=== PATIENT | female | born 1965 | race Caucasian/White ===

== ENCOUNTER 2018-06-18 17:49 | Emergency (ER) | payer OTHER, SELFPAY ==
[2018-06-18 17:52] VITALS: BP 176/74; PULSE 114; RESP 20; TEMP 37.3; O2SAT 97; BMI 51.2
--- NOTE | 2018-06-18 18:05 | RAD_ITS ---
STUDY: X-RAY - PELVIS REASON FOR EXAM: Female, 52 years old. Pain. TECHNIQUE: One view of the pelvis was obtained. COMPARISON: None. FINDINGS: There is a normal bowel gas pattern. There are multiple calcified phleboliths. Normal bilateral iliac wings, sacroiliac joints and visualized sacrum. Normal visualized bilateral superior and inferior pubic rami. There is narrowing with sclerosis of the pubic symphysis. Normal ischial tuberosities. Normal visualized right femoral head. Normal right acetabulum. Normal right hip joint. Normal visualized left femoral head. Normal left acetabulum. Normal left hip joint. There is no acute fracture. RAD/Pelvis 1 or 2 Views IMPRESSION: No fracture. Joint spaces of the hips are well-preserved.. Electronically Signed: Chaim Pro MD at 18:45 EDT , Service support ,
--- NOTE | 2018-06-18 18:23 | ED.VISSUMM ---
- ER Visit Summary Date of Service: 06/18/18 Chief Complaint: Left hip pain History of Present Illness: The patient is a 52 F who was at work today. She took her shoes off and was walking across the floor. She was still in socks in her left foot slipped in front of her and she went down into a forcible split. Since that time she has had pain and burning starting in the buttock radiating down the thigh. Nothing below the knee. She states her foot is functioning and feeling normally. Physical Examination: Afebrile vital signs stable Gen: Well-nourished well-developed Head: Normocephalic atraumatic Eyes: Perrl EOMI ENT: TMs clear no rhinorrhea moist mucous membranes Neck: Supple no lymphadenopathy no JVD nontender CVS: Regular rate rhythm no murmurs normal S1-S2 Respiratory: No distress clear to auscultation bilaterally chest nontender Abdomen: Soft nontender nondistended normal bowel sounds no masses Back: Nontender Extremity: Patient has pain in the left buttock along the sciatic notch extending inferiorly to the hamstring. Painful range of motion. Skin: Normal color no rash Neuro: alert orientated ?3 CN II-XII intact normal strength sensation reflexes Psych: Normal affect normal mood Test Results: X-rays of the pelvis did not demonstrate any pole of fracture. Emergency Department Course and Treatment: Patient initially did not wish anything for pain but later recanted asked for something orally and not narcotic. She was given naproxen. Ice was applied. I believe this to be a hamstring strain or tearing. There may also be a component of a sciatic nerve injury however it is functioning normally in both the motor and sensory functions. Recommend ice supportive care and rest. Impression: 1. Left hamstring strain This note was generated with [employer] dictation software. It may contain incorrect words, spelling, and punctuation that were not noted in review of the chart prior to signing ED Disposition - Plan for ED Patient: Disposition: Home or Assisted Living Instructions: ED Strain Muscle Ext Referrals: [facility] [GROUP OF PHYSICIANS] - As soon as possible
[2018-06-18] MEDS: Naproxen 500 MG Tablet PO (18:28)
== END 2018-06-18 19:07 | disposition home or self-care (01) ==
LOC: ED 19:02
PROVIDERS: Emergency Provider Emergency Medicine; Family Provider Family Medicine; PCP Family Medicine
DX: S76.012A Strain of muscle, fascia and tendon of left hip, initial encounter (principal); W01.0XXA Fall on same level from slipping, tripping and stumbling without subsequent striking against object, initial encounter; Y93.01 Activity, walking, marching and hiking; Y92.89 Other specified places as the place of occurrence of the external cause; Y99.0 Civilian activity done for income or pay; I10 Essential (primary) hypertension
CPT/HCPCS: 72170; 99284

== ENCOUNTER 2024-05-07 12:50 | Inpatient (IN) | payer OTHER, SELFPAY ==
[2024-05-07] VITALS (27 sets, daily range): BP systolic 99–174; BP diastolic 62–122; PULSE 68–168; RESP 12–25; TEMP 36.4–36.9; O2SAT 91–100; BMI 38.2; BMI 37.8
--- NOTE | 2024-05-07 12:57 | EKG12_ITS ---
Test Reason : RHYTHM CHANGE Blood Pressure : */* mmHG Vent. Rate : 80 BPM Atrial Rate : * BPM P-R Int : * ms QRS Dur : 80 ms QT Int : 350 ms P-R-T Axes : * -18 13 degrees QTcB Int : 403 ms Atrial fibrillation with premature ventricular or aberrantly conducted complexes Poor R wave progression Abnormal ECG Confirmed by Andreas Garg ([id number]), senior technical editor [place] OLIVA ([id number]) on 05/11/2024 9:33:34 AM Referred By: Confirmed By: Andreas Garg
--- NOTE | 2024-05-07 13:00 | EKG12_ITS ---
Test Reason : PALPATATIONS Blood Pressure : */* mmHG Vent. Rate : 151 BPM Atrial Rate : * BPM P-R Int : * ms QRS Dur : 78 ms QT Int : 276 ms P-R-T Axes : * -20 33 degrees QTcB Int : 437 ms Critical Test Result: High HR Atrial fibrillation with rapid ventricular response Poor R wave progression Abnormal ECG Confirmed by Andreas Garg ([id number]), map editor [place] OLIVA ([id number]) on 05/11/2024 10:57:05 AM Referred By: Confirmed By: Andreas Garg
[2024-05-07 14:00] LABS: Absolute Lymphocyte Count 1.38 X10^3/uL (0.83-4.51); Absolute Neutrophil Count 2.5 X10^3/uL (2.0-7.7); Basophil# 0.01 X10^3/uL; Basophil% 0.2 % (0-1); Eosinophil# 0.05 X10^3/uL; Eosinophils% 1.1 % (0-5); Hematocrit 37.9 % (37-47); Hemoglobin 12.7 g/dL (12.0-15.0); Lymphocyte # 1.38 X10^3/ul (0.83-4.51); Lymphocyte % 31.2 % (19-41); Mean Corp Hgb Conc 33.5 g/dL (32-36); Mean Corpuscular Hgb 27.3 pg (27.0-32.0); Mean Corpuscular Volume 81.3 fL (81-99); Mean Platelet Vol. 10.6 fl (6.2-12.0); Monocyte# 0.49 X10^3/uL; Monocyte% 11.1 % (0-10); NRBC Flagged by Analyzer 0 % (0-5); Neutrophil # 2.49 X10^3/uL (2.7-7.7); Neutrophil % 56.2 % (47-70); Platelet Count 215 K/mm3 (150-450); RBC Distribution Width CV 14.4 % (11.6-14.6); RBC Distribution Width SD 41.8 fl (35.1-43.9); Red Blood Count 4.66 M/mm3 (4.2-5.4); White Blood Count 4.4 K/mm3 (4.4-11.0)
--- NOTE | 2024-05-07 14:02 | RAD_ITS ---
PROCEDURE: CHEST 1 VIEW (PORTABLE) REASON FOR EXAM: Palpitations and high heart rate. TECHNIQUE: Frontal view of the chest. COMPARISON: None FINDINGS: EKG electrodes are seen. Borderline cardiomegaly. The lungs are clear. RAD/Chest 1 View (Portable) IMPRESSION: Borderline cardiomegaly. Lungs are clear. Reading Location: [id number]
[2024-05-07] MEDS: dilTIAZem 25 MG/5 ML Vial 20 MG IV BOLUS (14:10)
[2024-05-07 14:20] LABS: Troponin T High Sensitivity 10 ng/L (<=14)
[2024-05-07 14:41] LABS: Anion Gap 12 (5-15); BUN 13 mg/dL (4-19); BUN/Creat Ratio 32.9 RATIO (10-20); Calcium 8.8 mg/dL (7.6-11.0); Carbon Dioxide 21.7 mmol/L (22.0-29.0); Chloride 105 mmol/L (96-108); Creatinine, Serum 0.4 mg/dL (0.6-1.0); EST Glomerular Filtration Rate 116 (>60); Estimated Creatinine Clearance 179.51 ml/min; Glucose 134 mg/dL (70-99); Potassium 3.5 mmol/L (3.3-5.1); Pro- Brain NATRIURETIC PEPTIDE 598 pg/mL (<=900); Sodium Level 138 mmol/L (133-145)
--- NOTE | 2024-05-07 14:56 | EX.ED.DYSGE1 ---
HPI History of Present Illness Chief Complaint: Palpitations Detail of Chief Complaint: Intermittent palpitations Saturday and constant since onset today Informant: patient and spouse/S.O. Onset/Context/Timing Onset: Today, Yesterday and Days Context: Sudden Onset Timing: Continuous (Since onset today otherwise intermittent on Saturday and Saturday) Quality: Patient's Apple Watch notified her that her heart was going fast Location: Cardiovascular Current Severity: Moderate Maximum Severity: Severe Worsened by: Nothing Relieved by: Nothing Associated Symptoms Associated Symptoms: None Narrative Narrative: Patient is a 58-year-old woman. She has history of hypertension. She lost a significant amount of weight and her blood pressure medicine was discontinued. She has been gaining weight. Her pressure has been elevated and she was started on losartan and hydrochlorothiazide April 10, 2024. On Saturday patient had rapid heart rate that lasted an hour or so. Saturday she had rapid heart rate that lasted for period of time. This episode started at approximately noon. Patient last ate at 1 PM. She presently has no symptoms other than her heart is pounding fast. She denies history of VTE. Denies leg pain, swelling discoloration. She denies chest discomfort including pleuritic pain. She denies orthopnea, PND or dyspnea on exertion. She denies abdominal pain, nausea, vomiting or diarrhea. She denies maroon or black-colored stool. Prior similar symptoms: No Recent Illness/Hospitalization: No [facility] Medical History (Updated 05/07/24 @ 16:[address] Jhon Alexander MD) Stomach ulcer Hypertension Home Medications ?Medication ?Instructions ?Recorded ?Last Taken ?Type losartan 100 1 ea PO DAILY 06/18/18 Unknown History mg-hydrochlorothiazide 12.5 mg tablet metoprolol succinate 50 mg 50 mg PO DAILY 06/18/18 Unknown History tablet,extended release 24 hr Allergy/AdvReac Type Severity Reaction Status Date / Time erythromycin base Allergy Other Verified 05/07/24 12:54 orange Allergy Anaphylaxis Verified 05/07/24 14:07 nitrofurantoin (From AdvReac Other Verified 05/07/24 12:54 Macrodantin) Penicillins AdvReac Unknown Verified 05/07/24 12:54 Surgical History History of cholecystectomy Social History household members: spouse Smoking Status: Never smoker alcohol intake: current alcohol intake frequency: holidays/special occasions only ROS ROS ED Constitutional Constitutional ED: Denies chills, fever(s), subjective, sweats or weight loss Eyes Eyes: Denies blurry vision, change in vision or diplopia ENT ENT ED: Denies ear pain, rhinorrhea or sore throat Cardiovascular Cardiovascular: Reports palpitations and racing heartbeat; Denies chest pain, orthopnea or paroxysmal nocturnal dyspnea Respiratory/Chest Respiratory/Chest: Denies cough, dyspnea, dyspnea on exertion, orthopnea or paroxysmal nocturnal dyspnea Gastrointestinal Gastrointestinal: Denies abdominal pain, constipation, diarrhea, melena, nausea or vomiting Genitourinary Genitourinary ED: Denies dysuria or hematuria Musculoskeletal Musculoskeletal: Denies back pain Integumentary Denies Abrasions or rash Neurologic Neurologic: Denies paresthesias or weakness Endocrine Endocrinology: Denies cold intolerance or heat intolerance Hematologic/Lymphatic Hematologic/Lymphatic: Reports systems reviewed and no addt'l complaints, except as documented EXAM Physical Exam Const Vital Signs: 05/07/24 12:52 05/07/24 12:57 05/07/24 13:20 Temperature 97.5 F L Temperature Source Temporal Pulse Rate 119 H Respiratory Rate 16 Respiratory Effort Normal Blood Pressure 174/122 H Blood Pressure Mean 139 Pulse Ox 98 Oxygen Delivery Method Room Air Room Air 05/07/24 13:51 05/07/24 14:10 05/07/24 14:15 Temperature Temperature Source Pulse Rate 168 H 168 H 121 H Respiratory Rate 19 H 19 H 14 Respiratory Effort Blood Pressure 123/93 H 136/93 H 129/71 H Blood Pressure Mean 103 107 90 Pulse Ox 93 98 98 Oxygen Delivery Method Room Air Room Air Room Air 05/07/24 14:16 05/07/24 15:00 05/07/24 15:21 Temperature Temperature Source Pulse Rate 113 H 145 H 103 H Respiratory Rate 22 H 20 H Respiratory Effort Blood Pressure 140/81 H 119/75 Blood Pressure Mean 100 89 Pulse Ox 98 96 Oxygen Delivery Method Room Air Room Air 05/07/24 15:24 05/07/24 15:30 05/07/24 15:39 Temperature Temperature Source Pulse Rate 90 97 Respiratory Rate 15 16 Respiratory Effort Blood Pressure 117/70 Blood Pressure Mean 85 Pulse Ox 96 95 Oxygen Delivery Method Room Air 05/07/24 15:45 05/07/24 15:48 05/07/24 16:00 Temperature Temperature Source Pulse Rate 96 88 76 Respiratory Rate 23 H 16 20 H Respiratory Effort Blood Pressure 125/72 H 120/84 H Blood Pressure Mean 88 95 Pulse Ox 91 96 97 Oxygen Delivery Method Room Air Room Air Positive well nourished and well developed Constitutional Narrative: BMI is 38.3. General Appearance ED: well developed, NAD and pallor HEENT Reports moist mucous membranes HEENT Narrative: Head is atraumatic normocephalic. Ears normal. Nares patent. Eyes PERRL and EOMs intact bilaterally General Eye ED: Negative for pale conjunctiva or scleral icterus Neck no lymphadenopathy, supple and no JVD Chest Wall inspection of chest normal and palpation of chest normal Resp normal respiratory effort and clear to auscultation bilaterally Cardio no murmurs Rate: tachycardic Rhythm: abnormal rhythm irregularly irregular GI normal to inspection, nondistended, normoactive bowel sounds, non-tender, non-distended and no masses; Negative for hepatosplenomegaly Back/Spine Back/Spine Narrative: Inspection of the back appears normal. Extremity normal to inspection General Extremety ED: Negative for edema or tenderness General Extremity: Negative for edema Neuro oriented x3, CN's II-XII intact bilaterally and no sensory deficits noted Sensorium / Orientation: alert Psych mental status grossly normal Skin no rashes or lesions noted, no wounds and skin turgor normal General Skin Exam: elasticity normal and pallor; Negative for jaundice MDM MDM MDM Narrative Medical decision making narrative: Patient presents with new onset atrial fibrillation. Patient does have history of hypertension. This is most likely the cause. She has no symptoms that suggest VTE or coronary disease. She denies alcohol use. Will obtain troponin to assess for cardiac ischemia. BMP was obtained because of his equivocal pedal edema. Chest x-ray was ordered per nurse protocol. CBC was obtained assess H&H to rule out anemia. She does appear pale. BMP to assess renal function and electrolytes. Patient was milligrams of Cardizem. I was told 20 minutes after the infusion her heart rate was still 1 40-1 50. Additional bolus of Cardizem was ordered as well as Cardizem drip. She was not cardioverted because patient ate an hour prior to her presentation. Lab Data Attestation: I reviewed the patient's lab results. Lab results narrative: CBC is normal. Basic metabolic panel reveals a glucose of 134 with normal CO2 anion gap. Troponin with symptoms on Saturday as well as today are is normal. BNP is normal Labs: Laboratory Results - last 24 hr 05/07/24 05/07/24 13:51 16:00 WBC 4.4 RBC 4.66 Hgb 12.7 Hct 37.9 MCV 81.3 MCH 27.3 MCHC 33.5 RDW Std Deviation 41.8 RDW Coeff of Laureano 14.4 Plt Count 215 MPV 10.6 Immature Gran % (Auto) 0.200 Neut % (Auto) 56.2 Lymph % (Auto) 31.2 Hartley % (Auto) 11.1 H Eos % (Auto) 1.1 Baso % (Auto) 0.2 Absolute Neuts (auto) 2.5 Absolute Lymphs (auto) 1.38 Nucleated RBC % 0 Sodium 138 Potassium 3.5 Chloride Direct 105 Carbon Dioxide 21.7 L Anion Gap 12 BUN 13 Creatinine 0.4 L Estim Creat Clear Calc 179.51 Est GFR (MDRD) Non-Af 116 BUN/Creatinine Ratio 32.9 H Glucose 134 H Calcium 8.8 Troponin T High Sens 10 Troponin T Hi Sens 2 Hr 6 Troponin T Hi Sens 2Hr Delta 4 NT pro BNP II 598 Radiography Chest X-Ray - ED: 1 View and Read by ED Physician (Single view chest x-ray reveals borderline cardiomegaly. There is slightly rotated. There is no effusion. There is no cephalization of curly B-lines. There is no infiltrate. Osseous structures are unremarkable.) Diagnostic Testing: Clinical Impression(s) from Imaging Studies Chest X-Ray 05/07/24 14:02 IMPRESSION: Borderline cardiomegaly. Lungs are clear. Reading Location: [facility] EKG Initial EKG: Attestation: I personally reviewed and interpreted this EKG as follows: Interpretation: Atrial Fibrillation (Rate is 151. QRS duration is 70 ms. QT duration 276 ms. United is normal. There is no ossific changes as well as artifact. This most likely is due to the atrial fibrillation.) Follow-up EKG: Attestation: I personally reviewed and interpreted this EKG as follows: Interpretation: Atrial Fibrillation (Rate is 80. There are evidence of a parent complexes versus premature ventricular beats. QRS duration 80 ms. QT duration 350 ms. United is normal. There is significant artifact.) Management Discussion w/another healthcare provider: Hospitalist (Informed of history, physical, Dr. Andreas Garg recommendation.) and Frame Stylist (Spoke with Dr. Garg regarding cardioversion. Since the exact time is uncertain recommended anticoagulation. He he recommended giving IV metoprolol on top of the Cardizem bolus x 2 and drip that was ordered. Patient did not get placed on the drip because her heart rate went down to the 5060 rang) Treatment and Re-Evaluation :: Patient was reassessed at 1621. Her heart rate is now 146. Nurse was instructed to start the Cardizem drip. Page is placed to the hospitalist Dr. Juan Mensah and warehouse worker Dr. Andreas Garg since she will require admission for new onset atrial fibrillation with RVR.. The plan was to discharge to home on metoprolol twice daily and Eliquis with outpatient echo. Critical Care Time Critical Care Time: Yes Critical care time (excluding procedures): 30-74 minutes (31), Including time spent: (History, physical, documentation, independent rotation of laboratory results, images), Discussing w/Patient &/or Family/Physical Therapy Teacher, Discussing w/Consultants (Dr. Broderick's warehouse worker the initial consult, after he saw her and to inform her that she will require admission since her heart rate is elevated at approxione 50. He recommended metoprolol p.o. 50 mg every 6. He will see your in the morning.) and Arranging Admission or Transfer (Dr. Santiago was paged for admission.) Discharge Plan Dx/Rx/DC Orders Clinical Impression: Atrial fibrillation, new onset, Hypertension, BMI 38.0-38.9,adult Disposition Disposition: Acute Care Hospital [facility]
[2024-05-07] MEDS: dilTIAZem 25 MG/5 ML Vial IV BOLUS (15:11)
[2024-05-07] MEDS: Metoprolol Tartrate 5 MG/5 ML Vial IV (15:25)
[2024-05-07] MEDS: APIXABAN 5 MG TABLET PO (15:25)
--- NOTE | 2024-05-07 15:54 | CON.PCM.CA_ITS ---
Assessment & Plan Assessment/Plan (1) Paroxysmal atrial fibrillation: PLAN: Patient presents emergency department today with new onset atrial fibrillation that has been sustained and the heart rates in the 1 40?150 range. She was treated with IV Cardizem and IV Lopressor with heart rates dropping into the 90 bpm range but she persisted in atrial fibrillation with occasional PVCs. The patient's symptoms are much improved she did is still aware of the fluttering sensation. It appears this is probably primarily caffeine and significant stress anxiety driven. She has been placed on metoprolol 50 mg twice daily and Eliquis 5 mg twice daily. It appears she has been in and out of atrial fibrillation for 72 hours. I do not feel comfortable with cardioversion at this point in time. The patient will be set up to come back to our office in 1 week for an EKG check. She is instructed to monitor her heart rate on her iWatch. And will reevaluate her in the office in 3 weeks. If she remains in atrial fibrillation and has 4 weeks of oral anticoagulation would consider direct-current cardioversion at that time. A 2D echocardiogram will be ordered in the interim. (2) Hypertension: QUALIFIERS: Hypertension type: primary hypertension Qualified Code(s): I10 - Essential (primary) hypertension PLAN: Patient had been normotensive after significant weight loss until just recently. She was reinstituted on losartan and hydrochlorothiazide March 2024. Blood pressure is well-controlled on her current meds today. Electrolytes are in acceptable ranges and her renal function is normal. PLAN: Plan 1. Will discharge to home from the emergency department on metoprolol 50 mg twice daily and Eliquis 5 mg twice daily. 2. Patient will follow-up in Dr. Garg office in 1 week for an EKG. 3. Patient will follow-up in the [facility] office in 3 weeks for reevaluation and consideration for direct-current cardioversion. 4. 2D echocardiogram will be obtained in the interim. HPI Consult Data Date of Consult: 05/07/24 HPI Narrative Reason for Consultation: New onset atrial fibrillation rapid ventricular response. HPI Narrative: LALA HARDIN, is a 58 F who presents with new onset atrial fibrillation with a heart rate in the 150 range. The patient is noted over the last 24 to 48 hours short episodes of palpitations. The last 10 or 15 minutes occurred on Saturday and Saturday evenings. And then today they came on and did not stop. She came to the emergency department and was found to be in atrial fibrillation with a rapid ventricular response. She was given IV Cardizem with minimal change in the rate she was simply given 5 of IV Lopressor with improvement of the rate down in the 90 bpm range. EKG shows persistent atrial fibrillation with occasional PVCs. The patient feels much better with a slower rate. The patient has no prior history of atrial fibrillation she has been under significant stress due to family illness situation and an extremely stressful job with a large project ongoing. She actually lost quite a bit of weight recently and had been off all of her blood pressure medicines until March when she was reinstituted on losartan and hydrochlorothiazide. The patient does drink 4 to 6 cups of caffeine a day. She denies any illicit drug use. She denies any use of weight loss medications or other stimulants. The patient has no prior history of pulmonary emboli. She has no prior cardiac history at all. Patient denies any history of hyperlipidemia she has never smoked she is not diabetic. There is a family history of congestive heart failure of an unknown etiology. But no history of coronary artery disease. [facility] Medical History (Updated 05/07/24 @ 16:[address] Andreas Garg MD) Stomach ulcer Hypertension Home Medications ?Medication ?Instructions ?Recorded ?Last Taken ?Type losartan 100 1 ea PO DAILY 06/18/18 Unkno wn History mg-hydrochlorothiazide 12.5 mg tablet metoprolol succinate 50 mg 50 mg PO DAILY 06/18/18 Unk nown History tablet,extended release 24 hr Allergy/AdvReac Type Severity Reaction Status Date / Time erythromycin base Allergy Other Verified 05/07/24 12:54 orange Allergy Anaphylaxis Verified 05/07/24 14:07 nitrofurantoin (From AdvReac Other Verified 05/07/24 12:54 Macrodantin) Penicillins AdvReac Unknown Verified 05/07/24 12:54 Surgical History History of cholecystectomy Social History household members: spouse Smoking Status: Never smoker alcohol intake: current alcohol intake frequency: holidays/special occasions only ROS Constitutional Constitutional: Reports as per HPI Eyes Eyes: Reports systems reviewed and no addt'l complaints, except as documented ENT HEENT: Reports systems reviewed and no addt'l complaints, except as documented Cardiovascular Cardiovascular: Reports as per HPI Respiratory/Chest Respiratory/Chest: Reports as per HPI Gastrointestinal Gastrointestinal: Reports systems reviewed and no addt'l complaints, except as documented Genitourinary Genitourinary: Reports systems reviewed and no addt'l complaints, except as documented Musculoskeletal Musculoskeletal: Reports systems reviewed and no addt'l complaints, except as documented Integumentary Integumentary: Reports systems reviewed and no addt'l complaints, except as documented Neurologic Neurologic: Reports systems reviewed and no addt'l complaints, except as documented Psychiatric Psychiatric: Reports systems reviewed and no addt'l complaints, except as documented Endocrine Endocrinology: Reports as per HPI Hematologic/Lymphatic Hematologic/Lymphatic: Reports systems reviewed and no addt'l complaints, except as documented Allergic/Immunologic Allergic/Immunologic: Reports systems reviewed and no addt'l complaints, except as documented Physical Exam Narrative Patient is appropriately anxious and speaks with somewhat pressured speech. Const alert and oriented x3 HEENT normocephalic Eyes PERRL Neck Neck Narrative: Noted JVD at 30 degrees to the angle of the jaw. Chest inspection of chest normal Resp normal respiratory effort and clear to auscultation bilaterally Cardio Rate: regular rate Rhythm: abnormal rhythm irregularly irregular Heart Sounds: S1 normal and S2 normal; Negative for click, gallop or murmur GI soft to palpation Extremity normal to inspection and no pedal edema Skin no rashes or lesions noted Neuro Neuro Narrative: Alert and oriented x 3 Psych mental status grossly normal Risk Stratification Risk Stratification Applicable: No Charges/Coding Visit Charges Inpatient E&M: 84434 Init Hosp L2 Objective Data Vital Signs: Vital Signs Temp Pulse Resp BP Pulse Ox O2 Del Method 97.5 F L 97 15 117/70 96 Room Air 05/07/24 12:52 05/07/24 15:30 05/07/24 15:30 05/07/24 15:30 05/07/24 15:30 05/07/24 15:30 Oxygen Delivery Method Room Air Weight: 223 lb Body Mass Index (BMI) 38.2 Lab / Micro Data Attestation: I reviewed the patient's lab results. 05/07/24 13:51 05/07/24 13:51 Labs: Laboratory Results - last 24 hr 05/07/24 13:51: WBC 4.4, RBC 4.66, Hgb 12.7, Hct 37.9, MCV 81.3, MCH 27.3, MCHC 33.5, RDW Std Deviation 41.8, RDW Coeff of Laureano 14.4, Plt Count 215, MPV 10.6, Immature Gran % (Auto) 0.200, Neut % (Auto) 56.2, Lymph % (Auto) 31.2, Baxter % (Auto) 11.1 H, Eos % (Auto) 1.1, Baso % (Auto) 0.2, Absolute Neuts (auto) 2.5, Absolute Lymphs (auto) 1.38, Nucleated RBC % 0, Sodium 138, Potassium 3.5, Chloride Direct 105, Carbon Dioxide 21.7 L, Anion Gap 12, BUN 13, Creatinine 0.4 L, Estim Creat Clear Calc 179.51, Est GFR (MDRD) Non-Af 116, BUN/Creatinine Ratio 32.9 H, Glucose 134 H, Calcium 8.8, Troponin T High Sens 10, NT pro BNP II 598 Rhythm Strip Rhythm Strip: A-fib Rate: 90 Ectopy: PVC(s) Cardiology Labs/Tests 05/07/24 13:51: WBC 4.4, RBC 4.66, Hgb 12.7, Hct 37.9, MCV 81.3, MCH 27.3, MCHC 33.5, Plt Count 215, MPV 10.6, Immature Gran % (Auto) 0.200, Neut % (Auto) 56.2, Lymph % (Auto) 31.2, Baxter % (Auto) 11.1 H, Eos % (Auto) 1.1, Baso % (Auto) 0.2, Absolute Neuts (auto) 2.5, Nucleated RBC % 0, Sodium 138, Potassium 3.5, Carbon Dioxide 21.7 L, Anion Gap 12, BUN 13, Creatinine 0.4 L, Est GFR (MDRD) Non-Af 116, BUN/Creatinine Ratio 32.9 H, Glucose 134 H, Calcium 8.8 Rhythm: EKG: ECHO: Stress Test: Cardiac Cath: PCI: CT Surgery: Holter monitor: EPS: PPM: CXR: Chest CT Scan: Radiography Diagnostic Testing: Radiology Impression Chest X-Ray 05/07/24 14:02 IMPRESSION: Borderline cardiomegaly. Lungs are clear. Reading Location: [id number]
[2024-05-07 16:34] LABS: TROPONIN VARIANCE 2 HR 4; Troponin T High Sens 2 HR 6 ng/L (<=14)
[2024-05-07] MEDS: Diltiazem 125 MG in Dextrose 5%-Water (100mL Bag) 100 ML IV (16:59)
--- NOTE | 2024-05-07 17:28 | PCM.HP.STD ---
[facility] - General General Date of Service: 05/07/24 Chief Complaint: palpitations. HPI Narrative LALA HARDIN, is a 58 F who presents start experiencing palpitations this morning. Presented emergency room is noted to be in atrial fibrillation with RVR. Patient received diltiazem boluses and then heart rate did improve. Patient was seen by cardiology and plan is to discharge her home but then she started going up to the 140s to 150s again. Patient was subsequently restarted back on Cardizem drip with the plan to start her on metoprolol titrate 50 mg 4 times daily and check an echocardiogram. Additionally, patient received a dose of apixaban 5 mg in the emergency room. Patient denies any history of A-fib in the past. She does not consume excess amount of caffeine or smoke or vape. Denies any drug use. [facility] Medical History Stomach ulcer Hypertension Home Medications ?Medication ?Instructions ?Recorded ?Last Taken ?Type losartan 50 mg-hydrochlorothiazide 1 tab PO DAILY 05/07/24 Unknown History 12.5 mg tablet Allergy/AdvReac Type Severity Reaction Status Date / Time erythromycin base Allergy Other Verified 05/07/24 12:54 orange Allergy Anaphylaxis Verified 05/07/24 14:07 nitrofurantoin (From AdvReac Other Verified 05/07/24 12:54 Macrodantin) Penicillins AdvReac Unknown Verified 05/07/24 12:54 Surgical History History of cholecystectomy Social History household members: spouse Smoking Status: Never smoker alcohol intake: current alcohol intake frequency: holidays/special occasions only ROS ROS Narrative All review of systems were negative except as mentioned above in the history of present illness and the other review of systems. Vital Signs Vital Signs Vital Signs: 05/07/24 12:52 05/07/24 12:57 05/07/24 13:20 Temperature 36.4 C L Temperature Source Temporal Pulse Rate 119 H Respiratory Rate 16 Respiratory Effort Normal Blood Pressure 174/122 H Blood Pressure Mean 139 Pulse Ox 98 Oxygen Delivery Method Room Air Room Air 05/07/24 13:51 05/07/24 14:10 05/07/24 14:15 Temperature Temperature Source Pulse Rate 168 H 168 H 121 H Respiratory Rate 19 H 19 H 14 Respiratory Effort Blood Pressure 123/93 H 136/93 H 129/71 H Blood Pressure Mean 103 107 90 Pulse Ox 93 98 98 Oxygen Delivery Method Room Air Room Air Room Air 05/07/24 14:16 05/07/24 15:00 05/07/24 15:21 Temperature Temperature Source Pulse Rate 113 H 145 H 103 H Respiratory Rate 22 H 20 H Respiratory Effort Blood Pressure 140/81 H 119/75 Blood Pressure Mean 100 89 Pulse Ox 98 96 Oxygen Delivery Method Room Air Room Air 05/07/24 15:24 05/07/24 15:30 05/07/24 15:39 Temperature Temperature Source Pulse Rate 90 97 Respiratory Rate 15 16 Respiratory Effort Blood Pressure 117/70 Blood Pressure Mean 85 Pulse Ox 96 95 Oxygen Delivery Method Room Air 05/07/24 15:45 05/07/24 15:48 05/07/24 16:00 Temperature Temperature Source Pulse Rate 96 88 76 Respiratory Rate 23 H 16 20 H Respiratory Effort Blood Pressure 125/72 H 120/84 H Blood Pressure Mean 88 95 Pulse Ox 91 96 97 Oxygen Delivery Method Room Air Room Air 05/07/24 16:58 05/07/24 17:01 Temperature 36.9 C Temperature Source Pulse Rate 105 H 117 H Respiratory Rate 22 H 22 H Respiratory Effort Blood Pressure 128/80 H 125/64 H Blood Pressure Mean 96 84 Pulse Ox 96 97 Oxygen Delivery Method Room Air Weight Weight: 101.151 kg Body Mass Index (BMI) 38.2 Results Lab / Micro Data Attestation: I reviewed the patient's lab results. 05/07/24 13:51 05/07/24 13:51 Labs: Laboratory Results - last 24 hr 05/07/24 13:51: WBC 4.4, RBC 4.66, Hgb 12.7, Hct 37.9, MCV 81.3, MCH 27.3, MCHC 33.5, RDW Std Deviation 41.8, RDW Coeff of Laureano 14.4, Plt Count 215, MPV 10.6, Immature Gran % (Auto) 0.200, Neut % (Auto) 56.2, Lymph % (Auto) 31.2, Greer % (Auto) 11.1 H, Eos % (Auto) 1.1, Baso % (Auto) 0.2, Absolute Neuts (auto) 2.5, Absolute Lymphs (auto) 1.38, Nucleated RBC % 0, Sodium 138, Potassium 3.5, Chloride Direct 105, Carbon Dioxide 21.7 L, Anion Gap 12, BUN 13, Creatinine 0.4 L, Estim Creat Clear Calc 179.51, Est GFR (MDRD) Non-Af 116, BUN/Creatinine Ratio 32.9 H, Glucose 134 H, Calcium 8.8, Troponin T High Sens 10, NT pro BNP II 598 05/07/24 16:00: Troponin T Hi Sens 2 Hr 6, Troponin T Hi Sens 2Hr Delta 4 Rhythm Strip Rhythm Strip: A-fib Rate: 90 Ectopy: PVC(s) Imaging Radiology Impression Chest X-Ray 05/07/24 14:02 IMPRESSION: Borderline cardiomegaly. Lungs are clear. Reading Location: [id number] Assessment & Plan Assessment/Plan (1) Atrial fibrillation, new onset: PLAN: Atrial fibrillation with RVR. Still in atrial fibrillation. New onset. Patient will be continued on diltiazem drip and then have metoprolol 50 mg 4 times daily. Patient also be on apixaban 5 mg twice daily. I discussed this with Dr. Garg who also recommends to do echocardiogram. Hopefully the patient will be improved in the next day or 2 to be ready for discharge. PLAN: Plan VTE prophylaxis: Not indicated as patient is already anticoagulated with apixaban CODE STATUS: Addressed with the patient. Patient wishes to be full code. Charges/Coding Visit Charges Inpatient E&M: 95883 Init Hosp L2
[2024-05-07] MEDS: Acetaminophen 325 MG Tablet 650 MG PO (17:46)
--- NOTE | 2024-05-07 18:19 | ECHOCS_ITS ---
Reason For Study Reason For Study: New Onset AFib Procedure This was a 2D Doppler, Color Flow transthoracic echocardiogram. The study was technically difficult. Contrast injection was performed. Exam performed portable in patient room. Left Ventricle Normal LV size. The estimated ejection fraction is 60 %. No evidence for diastolic dysfunction. No regional wall motion abnormalities noted. Right Ventricle Normal RV size. Normal systolic function. Atria There is mild biatrial dilatation. No doppler evidence for ASD. Mitral Valve There is moderate mitral annular calcification. There is no mitral valve stenosis. Trivial mitral valve insufficiency. Tricuspid Valve There is no tricuspid stenosis. Trivial tricuspid valve insufficiency. Pulmonary artery systolic pressure is 30 mmHg. Aortic Valve There is no aortic stenosis. No aortic valve insufficiency. Pulmonic Valve There is no pulmonic valvular stenosis. No pulmonic valve insufficiency. Great Vessels Normal sized aortic root. Pericardium/Pleural No pericardial effusion. Medication Diluted definity 2ml given slow IV push to enhance endocardial definition. MMode/2D Measurements & Calculations LVIDd: 4.7 cm IVSd: 0.98 cm Ao root diam: 3.0 cm LVIDs: 3.3 cm LVPWd: 0.96 cm RVDd: 4.0 cm FS: 30.0 % LAV(MOD-bp): 85.6 ml LVAd ap4: 33.9 cm2 SV(MOD-sp4): 59.5 ml LAV(MOD-bp) Indexed: 42.0 ml/m2 LVLd ap4: 8.3 cm SI(MOD-sp4): 29.2 ml/m2 LAV(MOD-sp2): 88.9 ml EDV(MOD-sp4): 115.6 ml LAV(MOD-sp4): 70.3 ml EDV(sp4-el): 116.9 ml LVAs ap4: 21.3 cm2 LVLs ap4: 6.7 cm ESV(MOD-sp4): 56.1 ml ESV(sp4-el): 57.7 ml EF(MOD-sp4): 51.5 % EF(sp4-el): 50.7 % SV(sp4-el): 59.2 ml LA A4 area: 23.7 cm2 LA dimension(2D): 4.3 cm RA A4 area: 24.0 cm2 TAPSE: 1.6 cm Doppler Measurements & Calculations MV E max gee: 133.7 cm/sec MV V2 max: 150.9 cm/sec Ao V2 max: 138.4 cm/sec MV max P.1 mmHg Ao max P.8 mmHg MV V2 mean: 77.2 cm/sec Ao V2 mean: 98.6 cm/sec MV mean P.0 mmHg Ao mean P.5 mmHg MV V2 VTI: 27.8 cm Ao V2 VTI: 22.4 cm AV (velocity ratio): 0.81 LV V1 max: 109.0 cm/sec PA V2 max: 79.9 cm/sec TR max gee: 265.5 cm/sec LV V1 max P.8 mmHg TR max P.2 mmHg LV V1 mean P.9 mmHg LV V1 mean: 79.1 cm/sec LV V1 VTI: 18.1 cm ECHO/Echo Complete W/ Contrast Interpretation Summary The estimated ejection fraction is 60 %. No evidence for diastolic dysfunction. There is mild biatrial dilatation. Trivial mitral valve insufficiency. Ordering Physician: Juan Santiago Performed By: Wil Gray RCS
[2024-05-07] MEDS: Metoprolol Tartrate 50 MG Tablet PO (18:55)
[2024-05-07 19:56] LABS: TROPONIN VARIANCE 4 HR 3; Troponin T High Sens 4 HR 8 ng/L (<=14)
[2024-05-08] VITALS (13 sets, daily range): BP systolic 100–147; BP diastolic 64–103; PULSE 64–147; RESP 15–18; TEMP 36.3–36.8; O2SAT 97–99
[2024-05-08] MEDS: Metoprolol Tartrate 50 MG Tablet PO ×4 (00:41→16:51)
[2024-05-08] MEDS: 0.9% Saline Lock 10 ML Syringe IV (03:38)
--- NOTE | 2024-05-08 03:40 | NURSING ---
Pt called staff to room states feels shaky, like she will pass out. Hr had alarmed in 50's briefly on tele. bp was 116/75 hr 62. Cardizem stopped.Pt vomited moderate amount. States nausea improved after and declined zofran. Gingerale given. Texted Dr Arboleda to inform.
--- NOTE | 2024-05-08 04:00 | NURSING ---
Dr garcia called back ordered 500 ml fluid bolus to be given.
[2024-05-08] MEDS: 0.9% Normal Saline (500mL Bag) 500 ML 999 ML IV (04:20)
--- NOTE | 2024-05-08 04:34 | EKG12_ITS ---
Test Reason : a-fib Blood Pressure : */* mmHG Vent. Rate : 78 BPM Atrial Rate : * BPM P-R Int : * ms QRS Dur : 84 ms QT Int : 406 ms P-R-T Axes : * -14 29 degrees QTcB Int : 462 ms Atrial fibrillation Low voltage QRS Cannot rule out Anterior infarct , age undetermined Abnormal ECG When compared with ECG of 07-May-2024 15:43, MANUAL COMPARISON REQUIRED DATA IS UNCONFIRMED Confirmed by Andreas Garg ([id number]), sports editor PEPE AUGUST ([id number]) on 05/08/2024 9:43:09 AM Referred By: Dr Arboleda Confirmed By: Andreas Garg
--- NOTE | 2024-05-08 04:49 | NURSING ---
sent ekg to dr britt per order. Obtained hold paramenters for am lopressor. Will gtt dc'd by physician
[2024-05-08 07:57] LABS: Magnesium 2.1 mg/dL (1.5-2.2)
[2024-05-08 08:28] LABS: Anion Gap 10 (5-15); BUN 17 mg/dL (4-19); BUN/Creat Ratio 54.9 RATIO (10-20); Calcium 9.1 mg/dL (7.6-11.0); Carbon Dioxide 19.4 mmol/L (22.0-29.0); Chloride 107 mmol/L (96-108); EST Glomerular Filtration Rate 123 (>60); Estimated Creatinine Clearance 237.58 ml/min; Glucose 112 mg/dL (70-99); Potassium 3.9 mmol/L (3.3-5.1); Sodium Level 136 mmol/L (133-145); Thyroid Stim Hormone (TSH) < 0.005 uIU/mL (0.300-4.200)
--- NOTE | 2024-05-08 08:31 | PN.CARD_ITS ---
Subjective Subjective Patient had episode early this morning when she got up to go to the bathroom where she became dizzy heart rate was down in the 50-60 bpm range blood pressure was 99 systolic she got back to the bed vomited once and then her blood pressure recovered and heart rate is now up in the 80-90 bpm range. An EKG done right after the event revealed that she was still in atrial fibs with a controlled ventricular sponsor 78 bpm. There were no significant ST or T wave changes. This morning the patient received her 50 mg dose of metoprolol tartrate her heart rate now was 93 in atrial fibs on the monitor. The patient is visibly upset and tearful over her stress within her family involving both her health of her mother as well as her work stressors. Objective Data Vital Signs: Vital Signs Temp Pulse Resp BP Pulse Ox O2 Del Method 98.1 F 93 16 126/103 H 97 Room Air 05/08/24 05:00 05/08/24 07:16 05/08/24 05:00 05/08/24 07:16 05/08/24 05:00 05/08/24 08:25 Oxygen Delivery Method Room Air Weight: 220 lb 0.341 oz Body Mass Index (BMI) 37.8 Intake & Output: Intake and Output for Last 24 Hours 05/06/24 05/07/24 05/08/24 23:59 23:59 23:59 Intake Total 56.91 / 366.91 1078.33 / 1078.33 Balance 56.91 / 366.91 1078.33 / 1078.33 Lab / Micro Data Attestation: I reviewed the patient's lab results. 05/07/24 13:51 05/08/24 06:36 Labs: Laboratory Results - last 24 hr 05/07/24 13:51: WBC 4.4, RBC 4.66, Hgb 12.7, Hct 37.9, MCV 81.3, MCH 27.3, MCHC 33.5, RDW Std Deviation 41.8, RDW Coeff of Laureano 14.4, Plt Count 215, MPV 10.6, Immature Gran % (Auto) 0.200, Neut % (Auto) 56.2, Lymph % (Auto) 31.2, Nelson % (Auto) 11.1 H, Eos % (Auto) 1.1, Baso % (Auto) 0.2, Absolute Neuts (auto) 2.5, Absolute Lymphs (auto) 1.38, Nucleated RBC % 0, Sodium 138, Potassium 3.5, Chloride Direct 105, Carbon Dioxide 21.7 L, Anion Gap 12, BUN 13, Creatinine 0.4 L, Estim Creat Clear Calc 179.51, Est GFR (MDRD) Non-Af 116, BUN/Creatinine Ratio 32.9 H, Glucose 134 H, Calcium 8.8, Troponin T High Sens 10, NT pro BNP II 598 05/07/24 16:00: Troponin T Hi Sens 2 Hr 6, Troponin T Hi Sens 2Hr Delta 4 05/07/24 19:17: Troponin T Hi Sens 4Hr 8, Troponin T Hi Sens 4Hr Delta 3 05/08/24 06:36: Sodium 136, Potassium 3.9, Chloride Direct 107, Carbon Dioxide 19.4 L, Anion Gap 10, BUN 17, Creatinine 0.30 L, Estim Creat Clear Calc 237.58, Est GFR (MDRD) Non-Af 123, BUN/Creatinine Ratio 54.9 H, Glucose 112 H, Calcium 9.1, Magnesium 2.1, TSH < 0.005 L Rhythm Strip Rhythm Strip: A-fib Rate: 93 Ectopy: PVC(s) Cardiology Labs/Tests 05/07/24 13:51: WBC 4.4, RBC 4.66, Hgb 12.7, Hct 37.9, MCV 81.3, MCH 27.3, MCHC 33.5, Plt Count 215, MPV 10.6, Immature Gran % (Auto) 0.200, Neut % (Auto) 56.2, Lymph % (Auto) 31.2, Nelson % (Auto) 11.1 H, Eos % (Auto) 1.1, Baso % (Auto) 0.2, Absolute Neuts (auto) 2.5, Nucleated RBC % 0, Sodium 138, Potassium 3.5, Carbon Dioxide 21.7 L, Anion Gap 12, BUN 13, Creatinine 0.4 L, Est GFR (MDRD) Non-Af 116, BUN/Creatinine Ratio 32.9 H, Glucose 134 H, Calcium 8.8 05/08/24 06:36: Sodium 136, Potassium 3.9, Carbon Dioxide 19.4 L, Anion Gap 10, BUN 17, Creatinine 0.30 L, Est GFR (MDRD) Non-Af 123, BUN/Creatinine Ratio 54.9 H, Glucose 112 H, Calcium 9.1, Magnesium 2.1 Rhythm: EKG: ECHO: Stress Test: Cardiac Cath: PCI: CT Surgery: Holter monitor: EPS: PPM: CXR: Chest CT Scan: Radiography Diagnostic Testing: Radiology Impression Chest X-Ray 05/07/24 14:02 IMPRESSION: Borderline cardiomegaly. Lungs are clear. Reading Location: [facility] Physical Exam Narrative Patient is resting in the bed comfortably but is tearful. Const alert and oriented x3 HEENT normocephalic Eyes PERRL Neck no JVD and no carotid bruits Chest inspection of chest normal Resp normal respiratory effort and clear to auscultation bilaterally Cardio Rate: regular rate Rhythm: abnormal rhythm irregularly irregular Heart Sounds: S1 normal and S2 normal; Negative for click, gallop or murmur GI soft to palpation and non-tender Extremity no pedal edema Neuro Neuro Narrative: Alert and oriented x 3 Psych mental status grossly normal Assessment & Plan Assessment/Plan (1) Atrial fibrillation, new onset: PLAN: Patient had an episode last evening associated with nausea where her heart rate dropped down the 50 bpm range. She did not convert to sinus rhythm. She remains better controlled on her rhythm with the metoprolol 50 mg every 6 hours. The patient's TSH came back at less than 0.005 consistent with probable hyperthyroidism which would explain her atrial fibrillation. Patient should be continued on the Eliquis 5 mg twice daily. Will need to defer direct-current cardioversion until her thyroid is well-controlled. The 2D echocardiogram is pending at this time further recommendation be forthcoming once it is available. Further treatment of the hyperthyroidism be deferred to the primary service. (2) Hypertension: QUALIFIERS: Hypertension type: primary hypertension Qualified Code(s): I10 - Essential (primary) hypertension PLAN: Blood pressure remains acceptable on her current medical therapy. Diltiazem has been discontinued due to heart rate control with a beta-shanta which is treatment of choice when is driven by thyroid disease. Would recommend continuing losartan and hydrochlorothiazide at this time. If her blood pressure becomes an issue would stop the hydrochlorothiazide. (3) Hyperthyroidism: PLAN: TSH is less than 0.005. Will defer treatment to the primary service. PLAN: Plan 1. Need to address the hyperthyroidism. 2. Will reevaluate the patient after results of the echocardiogram are available. 3. Pending the treatment of the thyroid we will determine discharge planning provided rate can be controlled. Charges/Coding Visit Charges Inpatient E&M: 77662 Subs Hosp L2
[2024-05-08] MEDS: hydroCHLOROthiazide 12.5mg 12.5 MG PO (10:23)
[2024-05-08] MEDS: APIXABAN 5 MG TABLET PO ×2 (10:23→21:14)
[2024-05-08] MEDS: Losartan Potassium 50 MG Tablet PO (10:23)
--- NOTE | 2024-05-08 10:39 | CASEMGMT ---
JONATHAN ALEXANDRE Assessment: Face to Face with pt for initial transition planning/care coordination assessment. RN BETTIE introduced self and role at [facility], pt voices understanding and consents to assessment. Pt is A&O x4 and answers all questions appropriately at this time. Pt sitting up in bed in no distress, pt sitting at bedside. Care providers, pharmacy, and demographics verified/updated. Strata: 1 Admitting Dx: Palpitations PCP: [facility] Specialists: Denies Hx of [facility] Insurance: MM Prescription Benefit: yes LNOK: Andreas Living Arrangements: Pt lives with in a 1 story home with 2 steps to enter. ADLs: Pt states I at baseline. Transportation: Pt drives self and denies concerns with transportation. DME: Denies HHC/SNF: Denies Hx of. Pt states no concerns with going home at time of dc. Pt states no further concerns/needs. CM to follow. Advised pt to ask CM if any further question/concerns/needs arise, voices understanding. Pt Goal: Home Plan: Home, follow for safe D/C. Gwendolyn CASTILLO CM
[2024-05-08 13:34] LABS: T4 Total, Thyroxin 17.1 ug/dL (4.8-13.9); Thyroid Stim Hormone (TSH) < 0.005 uIU/mL (0.300-4.200)
--- NOTE | 2024-05-08 15:37 | CASEMGMT ---
RN BETTIE noted pt started on Eliquis, provided savings card to patient. Anticipate she will DC over the weekend.
--- NOTE | 2024-05-08 17:32 | PCM.PN.HOSP ---
Reason for Visit Reason for Visit: Diagnoses Thyrotoxicosis, unspecified without thyrotoxic crisis or storm (05/07/24) Essential (primary) hypertension (05/07/24) Paroxysmal atrial fibrillation (05/07/24) Unspecified atrial fibrillation (05/07/24) Subjective Subjective Patient was seen and examined today, I talked with cardiology about her care. It appears that the patient may have hyperthyroidism. She remains in atrial fib at this time, patient's echocardiogram shows a normal EF and no significant valvular heart disease. Patient denies any weight loss over the past year. Objective Data Objective Data Vital Signs: Vital Signs Temp Pulse Resp BP Pulse Ox O2 Del Method 97.5 F L 147 H 18 134/94 H 99 Room Air 05/08/24 15:29 05/08/24 16:51 05/08/24 15:29 05/08/24 15:29 05/08/24 15:29 05/08/24 15:29 Oxygen Delivery Method Room Air Weight: 99.8 kg Body Mass Index (BMI) 37.8 Intake & Output: Intake and Output for Last 24 Hours 05/06/24 05/07/24 05/08/24 23:59 23:59 23:59 Intake Total 56.91 / 366.91 1078.33 / 1078.33 Balance 56.91 / 366.91 1078.33 / 1078.33 Lab / Micro Data 05/07/24 13:51 05/08/24 06:36 Labs: Laboratory Results - last 24 hr 05/07/24 19:17: Troponin T Hi Sens 4Hr 8, Troponin T Hi Sens 4Hr Delta 3 05/08/24 06:36: Sodium 136, Potassium 3.9, Chloride Direct 107, Carbon Dioxide 19.4 L, Anion Gap 10, BUN 17, Creatinine 0.30 L, Estim Creat Clear Calc 237.58, Est GFR (MDRD) Non-Af 123, BUN/Creatinine Ratio 54.9 H, Glucose 112 H, Calcium 9.1, Magnesium 2.1, TSH < 0.005 L 05/08/24 06:36: TSH < 0.005 L, Thyroxine (T4) 17.1 H, Total T3 Cancelled Radiography Diagnostic Testing: Radiology Impression Echocardiogram 05/07/24 18:19 Interpretation Summary The estimated ejection fraction is 60 %. No evidence for diastolic dysfunction. There is mild biatrial dilatation. Trivial mitral valve insufficiency. Ordering Physician: Juan Santiago Performed By: Wil Gray RCS Rhythm Strip Rhythm Strip: A-fib Rate: 93 Ectopy: PVC(s) Physical Exam Const alert, oriented x3, no apparent distress and healthy appearing General Appearance: cooperative, well kempt and well developed Orientation / Consciousness: awake, oriented to person, oriented to place and oriented to time HEENT normocephalic, head/scalp atraumatic and moist oral mucous membranes Eyes PERRL, EOMs intact bilaterally and conjunctivae normal Neck supple, no JVD, thyroid normal and no carotid bruits General: trachea midline Resp normal respiratory effort, no retractions, no use of accessory muscles and clear to auscultation bilaterally Auscultation: Negative for rales, rhonchi or wheezes Cardio S1 normal heart sound, S2 normal heart sound, no murmurs, no rub and no gallops Cardio Narrative: Heart rate and rhythm was irregular GI normal to inspection, nondistended, normoactive bowel sounds, soft to palpation, non-tender and non-distended Extremity no clubbing, cyanosis or edema Skin no rashes or lesions noted General Skin Exam: no breakdown Neuro oriented x3, CN's II-XII intact bilaterally, moves all extremities, no focal motor deficits and no sensory deficits noted Sensorium / Orientation: awake and alert Speech: speech normal Psych affect normal Assessment & Plan Assessment/Plan (1) Atrial fibrillation, new onset: PLAN: Plan 1. New onset atrial fibrillation with RVR-cardiology is participating in her care, rate limiting agents or being adjusted, patient is on Eliquis #2 hyperthyroidism-patient will need follow-up regarding her abnormal thyroid function test, she may need imaging studies such as a thyroid scan or an ultrasound of the thyroid. These can be done as an outpatient. #3 essential hypertension-patient's blood pressure will be monitored and medications will be adjusted as needed Total clinical time spent by myself addressing the patient's medical issues, reviewing all of her data, and collaborating with patient's care team: 35 minutes Charges/Coding Visit Charges Inpatient E&M: 03136 Subs Hosp L2
[2024-05-08 19:08] LABS: T3 Total - Triiodothyronine 3.88 ng/mL (0.80-2.00)
[2024-05-09] VITALS (10 sets, daily range): BP systolic 144–162; BP diastolic 70–93; PULSE 104–142; RESP 15–18; TEMP 36.7–37.1; O2SAT 97–99
[2024-05-09] MEDS: Metoprolol Tartrate 50 MG Tablet PO ×5 (00:40→23:03)
[2024-05-09] MEDS: dilTIAZem 30 MG Tablet PO ×4 (08:33→23:03)
--- NOTE | 2024-05-09 09:46 | PCM.PN.CARD ---
Subjective Subjective Patient seated in her chair eating breakfast this morning. She still is feeling the anxiousness. Her heart rate jumped up in the 140s when she was up moving in the room earlier this morning. Otherwise it is running around 90-120. We will add Cardizem 30 mg every 6 to her metoprolol to tartrate 50 mg every [address] Hendrickson discussed the situation with endocrinology. Dr. Lawrence Jaime recommended instituting Tapazole and then reevaluating her blood work in 3 weeks. We will evaluate evaluate her again to make sure her heart rate is adequately controlled hopefully around to 100 bpm at least less than 110 routinely. She could then be discharged to home. She does have an iWatch for monitoring her heart rate in her home environment. Objective Data Vital Signs: Vital Signs Temp Pulse Resp BP Pulse Ox O2 Del Method 98.0 F 118 H 18 162/91 H 98 Room Air 05/09/24 08:30 05/09/24 08:30 05/09/24 08:30 05/09/24 08:30 05/09/24 08:30 05/09/24 08:30 Oxygen Delivery Method Room Air Weight: 220 lb 0.341 oz Body Mass Index (BMI) 37.8 Intake & Output: Intake and Output for Last 24 Hours 05/07/24 05/08/24 05/09/24 23:59 23:59 23:59 Intake Total 56.91 / 366.91 1328.33 / 1328.33 240 / 240 Output Total 450 / 450 300 / 300 Balance 56.91 / 366.91 878.33 / 878.33 -60 / -60 Lab / Micro Data Attestation: I reviewed the patient's lab results. 05/07/24 13:51 05/08/24 06:36 Labs: Laboratory Results - last 24 hr 05/08/24 06:36: TSH < 0.005 L, Thyroxine (T4) 17.1 H, Total T3 Cancelled 05/08/24 06:36: Total T3 3.88 H Rhythm Strip Rhythm Strip: A-fib Rate: 120 Ectopy: PVC(s) Cardiology Labs/Tests Rhythm: EKG: ECHO: Stress Test: Cardiac Cath: PCI: CT Surgery: Holter monitor: EPS: PPM: CXR: Chest CT Scan: Radiography Diagnostic Testing: Radiology Impression Echocardiogram 02/27/25 18:19 Interpretation Summary The estimated ejection fraction is 60 %. No evidence for diastolic dysfunction. There is mild biatrial dilatation. Trivial mitral valve insufficiency. Ordering Physician: Juan Santiago Performed By: Wil Gray RCS Physical Exam Const alert and oriented x3 Constitutional Narrative: Anxious. She describes it as jittery. HEENT normocephalic Eyes PERRL Neck no JVD Chest inspection of chest normal Resp normal respiratory effort and clear to auscultation bilaterally Cardio Rate: tachycardic Rhythm: abnormal rhythm irregularly irregular Heart Sounds: S1 normal and S2 normal; Negative for click, gallop or murmur Extremity no pedal edema Neuro Neuro Narrative: Alert and oriented x 3 Psych mental status grossly normal Assessment & Plan Assessment/Plan (1) Paroxysmal atrial fibrillation: PLAN: Patient remains in atrial fibrillation with ventricular response in the 90-140 bpm range with activity. Phone Technician suggest stopped starting Tapazole and reevaluating her blood work in 3 weeks. This will be instituted by the primary service. I instructed the patient on utilization of her iWatch. If her heart rate drops less than 55 she should skip the next dose of her rate modulating drugs of metoprolol and diltiazem. It is persistently in the lower 60s she should call the office and have an urgent EKG performed. She will have an EKG done in 1 week in our office. The patient will continue on Eliquis 5 mg twice daily. Once her thyroid is controlled and if she persist in atrial fibrillation then a direct-current cardioversion would be performed in the next 4 to 8 weeks. Patient should follow-up in our office with one of the nurse practitioners or Dr. Garg in 3 weeks. At that time we will reevaluate her thyroid functions,TSH and free T4, and a basic metabolic panel to evaluate her electrolytes. And perform another EKG. Once her thyroid functions have normalized an EKG would be repeated to make certain she is still in atrial fibs and then she would be scheduled for direct-current cardioversion in the next 6 to 8 weeks. I went over all this in great detail and the patient took notes on her iPhone. (2) Hypertension: QUALIFIERS: Hypertension type: primary hypertension Qualified Code(s): I10 - Essential (primary) hypertension PLAN: Patient's blood pressure is elevated she had been on losartan hydrochlorothiazide prior to this event. We started Cardizem 30 mg every 6 hours with her metoprolol tartrate 50 mg every 6 hours today. If her blood pressure remains elevated would consider reinstituting her losartan hydrochlorothiazide. (3) Hyperthyroidism: PLAN: Patient will be started on Tapazole today. She will have TSH and free T4 reevaluated in 3 weeks when she is seen in our office. The patient should follow-up with Dr. Lawrence Jaime in the future for her endocrinology for long-term evaluation and treatment. I believe she has an appointment with her in the next 2 weeks. PLAN: Plan 1. Will add Cardizem 30 mg every 6 hours to the metoprolol today. 2. Start Tapazole per primary service. 3. Will plan for follow-up as noted above under problem #1. 4. Provided heart rate is adequately controlled should be able to discharge in the next 24 hours. Charges/Coding Visit Charges Inpatient E&M: 32701 Subs Hosp L2
[2024-05-09] MEDS: hydroCHLOROthiazide 12.5mg 12.5 MG PO (09:53)
[2024-05-09] MEDS: Methimazole 5 MG Tablet 20 MG PO (09:53)
[2024-05-09] MEDS: Losartan Potassium 50 MG Tablet PO (09:53)
[2024-05-09] MEDS: APIXABAN 5 MG TABLET PO ×2 (09:53→23:03)
--- NOTE | 2024-05-09 14:16 | PCM.PN.HOSP ---
Reason for Visit Reason for Visit: Diagnoses Thyrotoxicosis, unspecified without thyrotoxic crisis or storm (05/07/24) Essential (primary) hypertension (05/07/24) Paroxysmal atrial fibrillation (05/07/24) Unspecified atrial fibrillation (05/07/24) Subjective Subjective Patient was seen and examined today, her rate is still not well-controlled, I talked with cardiology and Cardizem was added to her medications. Also talked with endocrinology by phone who recommended starting Tapazole and the patient. It was recommended the patient take 20 mg of Tapazole daily for a week and then reduce it to 10 mg daily thereafter and have repeat labs done 3 weeks Objective Data Objective Data Vital Signs: Vital Signs Temp Pulse Resp BP Pulse Ox O2 Del Method 98.0 F 105 H 18 162/91 H 98 Room Air 05/09/24 08:30 05/09/24 14:11 05/09/24 08:30 05/09/24 08:30 05/09/24 08:30 05/09/24 08:30 Oxygen Delivery Method Room Air Weight: 99.8 kg Body Mass Index (BMI) 37.8 Intake & Output: Intake and Output for Last 24 Hours 05/07/24 05/08/24 05/09/24 23:59 23:59 23:59 Intake Total 56.91 / 366.91 1328.33 / 1328.33 240 / 240 Output Total 450 / 450 300 / 300 Balance 56.91 / 366.91 878.33 / 878.33 -60 / -60 Lab / Micro Data 05/07/24 13:51 05/08/24 06:36 Labs: Laboratory Results - last 24 hr 05/08/24 06:36: Total T3 Cancelled 05/08/24 06:36: Total T3 3.88 H Radiography Diagnostic Testing: Radiology Impression Echocardiogram 05/07/24 18:19 Interpretation Summary The estimated ejection fraction is 60 %. No evidence for diastolic dysfunction. There is mild biatrial dilatation. Trivial mitral valve insufficiency. Ordering Physician: Juan Santiago Performed By: Wil Gray RCS Rhythm Strip Rhythm Strip: A-fib Rate: 120 Ectopy: PVC(s) Physical Exam Narrative alert, oriented x3, no apparent distress and healthy appearing General Appearance: cooperative, well kempt and well developed Orientation / Consciousness: awake, oriented to person, oriented to place and oriented to time HEENT normocephalic, head/scalp atraumatic and moist oral mucous membranes Eyes PERRL, EOMs intact bilaterally and conjunctivae normal Neck supple, no JVD, thyroid normal and no carotid bruits General: trachea midline Resp normal respiratory effort, no retractions, no use of accessory muscles and clear to auscultation bilaterally Auscultation: Negative for rales, rhonchi or wheezes Cardio S1 normal heart sound, S2 normal heart sound, no murmurs, no rub and no gallops Cardio Narrative: Heart rate and rhythm was irregular GI normal to inspection, nondistended, normoactive bowel sounds, soft to palpation, non-tender and non-distended Extremity no clubbing, cyanosis or edema Skin no rashes or lesions noted General Skin Exam: no breakdown Neuro oriented x3, CN's II-XII intact bilaterally, moves all extremities, no focal motor deficits and no sensory deficits noted Sensorium / Orientation: awake and alert Speech: speech normal Psych affect normal Assessment & Plan Assessment/Plan (1) Atrial fibrillation, new onset: PLAN: Plan 1. New onset atrial fibrillation with RVR-cardiology is participating in her care, rate limiting agents or being adjusted-patient was placed on Cardizem today, patient is on Eliquis #2 hyperthyroidism-patient will need follow-up regarding her abnormal thyroid function test, patient was started on Tapazole today #3 essential hypertension-patient's blood pressure will be monitored and medications will be adjusted as needed Total clinical time spent by myself addressing the patient's medical issues, reviewing all of her data, and collaborating with patient's care team: 35 minutes Charges/Coding Visit Charges Inpatient E&M: 20122 Subs Hosp L2
[2024-05-10] VITALS (9 sets, daily range): BP systolic 123–137; BP diastolic 89–94; PULSE 90–110; RESP 16–18; TEMP 36.6; O2SAT 95–99
[2024-05-10] MEDS: Metoprolol Tartrate 50 MG Tablet PO ×2 (06:20→12:11)
[2024-05-10] MEDS: dilTIAZem 30 MG Tablet PO ×2 (06:20→12:12)
--- NOTE | 2024-05-10 10:09 | PCM.PN.CARD ---
Subjective Subjective Patient reports that she is feeling well she is much calmer today. She is sitting up in the bed eating breakfast. Heart rates have been in the 100-110 bpm range. She was started on Tapazole 20 mg 3 times daily yesterday. The patient continues on metoprolol 50 mg every 6 and diltiazem 30 mg every 6 short acting preparations. Patient was instructed in detail about monitoring her heart rate with her iWatch. If it is consistently less than 60?70 I recommend she drop her rate modulating drugs back to 3 times a day rather than 4 times a day. Detailed follow-up instructions were outlined in the note from yesterday. Objective Data Vital Signs: Vital Signs Temp Pulse Resp BP Pulse Ox O2 Del Method 98 F 90 18 133/90 H 97 Room Air 05/10/24 08:00 05/10/24 08:00 05/10/24 08:00 05/10/24 08:00 05/10/24 08:00 05/10/24 08:00 Oxygen Delivery Method Room Air Weight: 220 lb 0.341 oz Body Mass Index (BMI) 37.8 Intake & Output: Intake and Output for Last 24 Hours 05/08/24 05/09/24 05/10/24 23:59 23:59 23:59 Intake Total 1328.33 / 1328.33 240 / 640 700 / 700 Output Total 450 / 450 300 / 300 Balance 878.33 / 878.33 -60 / 340 700 / 700 Lab / Micro Data Attestation: I reviewed the patient's lab results. 05/07/24 13:51 05/08/24 06:36 Rhythm Strip Rhythm Strip: A-fib Rate: 105 Cardiology Labs/Tests Rhythm: EKG: ECHO: Stress Test: Cardiac Cath: PCI: CT Surgery: Holter monitor: EPS: PPM: CXR: Chest CT Scan: Physical Exam Narrative Resting comfortably in the upright position in bed. Const alert and oriented x3 HEENT normocephalic Eyes PERRL Neck no JVD Resp normal respiratory effort and clear to auscultation bilaterally Cardio Rate: tachycardic Rhythm: abnormal rhythm irregularly irregular Heart Sounds: S1 normal and S2 normal; Negative for click, gallop or murmur Extremity no pedal edema Neuro Neuro Narrative: Alert and oriented x 3 Psych mental status grossly normal Assessment & Plan Assessment/Plan (1) Atrial fibrillation, new onset: PLAN: Atrial fibrillation rate is come under much better control. The patient will continue metoprolol tartrate 50 mg every 6 hours and Cardizem 30 mg every 6 hours for heart rate control. She remains on Eliquis 5 mg twice daily. Patient was given detailed instructions about managing her heart rate in her home environment. With the addition of Tapazole her rate may come down and she still remain in atrial fibrillation. The patient was instructed if her heart rate is consistently 60?70 to decrease her rate modulating metoprolol and Cardizem to 3 times a day instead of 4 times a day. The patient will follow-up in the [facility] office in 1 week for an ECG. She is scheduled to follow-up with Dr. Lawrence Jaime in 2 weeks for her hyperthyroidism and then to see our nurse practitioner in the [facility] in 3 weeks. She will have another EKG at that point in time and will reevaluate her lab work at that time as well. Once her thyroid is controlled if she remains in atrial fibrillation she would be scheduled for direct-current cardioversion in 6 to 8 weeks. 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 (2) Hyperthyroidism: PLAN: Patient was started on Tapazole yesterday 20 mg 3 times daily dosing will be per the primary service and Dr. Lawrence Jaime who she will follow-up with in 2 weeks. The patient should get repeat blood work in [address] Jaime's discretion. (3) Hypertension: QUALIFIERS: Hypertension type: primary hypertension Qualified Code(s): I10 - Essential (primary) hypertension PLAN: Patient's blood pressure is well-controlled on her current medical regiment. Losartan hydrochlorothiazide is being held at this time. Once her rate is controlled we have to back off of the rate modulating metoprolol and Cardizem we would probably have to reinstitute losartan hydrochlorothiazide to control her blood pressure. PLAN: Plan 1. Please see my note from yesterday for detailed follow-up instructions. 2. From a cardiovascular standpoint the patient can be discharged to home. Charges/Coding Visit Charges Inpatient E&M: 65682 Subs Hosp L2
[2024-05-10] MEDS: Losartan Potassium 50 MG Tablet PO (10:13)
[2024-05-10] MEDS: Methimazole 5 MG Tablet 20 MG PO (10:14)
[2024-05-10] MEDS: APIXABAN 5 MG TABLET PO (10:14)
[2024-05-10] MEDS: hydroCHLOROthiazide 12.5mg 12.5 MG PO (10:14)
--- NOTE | 2024-05-10 10:25 | DCINST_ITS ---
Discharge Instructions Diet Discharge Diet: 2000 mg Sodium Diet DC O2, CPAP, BIPAP needs Home O2 Discharge instructions: No Dressing / Incision Discharge Activity: Return to Normal Activity Weight Bearing Status: Weight bearing as tolerated Dressing / Incision Call your doctor if you observe: Fever of 101 or Higher, Coldness, Increased Pain, Numbness or Tingling, Change in Color, Inability to urinate, Inability to have a bowel movement, Using more than 1 pad per hour, Shortness of breath, Dizziness, Fainting spells, Swelling in the ankles, Chest pain, Prolonged hiccupping, Increased palpitations (irregular heartbeat) and Calf discomfort Follow Up Care When: IN 2 WEEKS Test Results: Test results from this visit will be discussed in further detail at your follow- up appointment, if applicable. Discharge Plan Admission Admit Date/Time: 05/07/24 17:24 Attending Provider: Casimiro Mireles Primary Care Provider: WES COLUNGA Consulting Providers: Andreas Garg; Juan Santiago; Navdeep Jo Instructions Additional Instructions / Restrictions: Advised methimazole 20 mg daily for 1 week and then decrease to 10 mg daily. Advised if heart rate is consistently 60-70/m for 2 to 3 days, decrease hold if heart rate less than 60/min and if persistently low between 60-70/m, can decrease metoprolol and Cardizem dose to 3 times daily. Discharge Orders/Prescriptions Prescriptions: New diltiazem HCl 30 mg Tablet 30 mg PO Q6 30 Days Qty: 120 1RF Eliquis 5 mg Tablet 5 mg PO BID 30 Days Qty: 60 3RF methimazole 10 mg tablet 20 mg PO DAILY 30 Days Qty: 60 2RF metoprolol tartrate 50 mg Tablet 50 mg PO Q6 30 Days Qty: 120 1RF No Action losartan-hydrochlorothiazide 50-12.5 mg tablet 1 tab PO DAILY Patient Comments: for blood pressure Referrals / Follow Up: WES COLUNGA DO [Primary Care Provider] - Andreas Garg MD [Med Staff - Active Staff] - Within 1 Week (Follow-up in 1 week) Lawrence Jaime MD [Med Staff - Courtesy Staff] - (Follow-up in 2 weeks) Disposition Disposition (needs filled in before D/C Order can be placed): Home, Self Care
--- NOTE | 2024-05-10 10:53 | DS.PCM_ITS ---
Providers Date of Admission: 05/07/24 Date of Discharge: 05/10/24 Primary Care Physician: WES COLUNGA DO Consultations 05/07/24 18:19 Consult: Cardiology Routine Consulting Provider: Andreas Garg Reason for Consult: afib EMERGENT Consult: No MD Notified: Yes Date Notified: 05/07/24 Time Notified: 17:27 Method of Notification: Verbal Reason For Visit: PALPITATIONS Diagnosis Discharge Diagnosis (1) Atrial fibrillation, new onset: Status: Acute Code(s): I48.91 - Unspecified atrial fibrillation (2) Hyperthyroidism: Status: Acute Code(s): E05.90 - Thyrotoxicosis, unspecified without thyrotoxic crisis or storm (3) Hypertension: Status: Chronic Code(s): I10 - Essential (primary) hypertension Qualifiers: Hypertension type: primary hypertension Qualified Code(s): I10 - Essential (primary) hypertension Plan 58-year-old female was admitted with palpitation and found to be in A-fib with RVR. Her heart rate was in 140s to 150s per minute. 1. New onset A-fib with RVR: Patient was admitted in PCU. Initially she was started on Cardizem drip which was titrated to metoprolol titrate 50 mg 4 times daily and subsequently Cardizem oral was started 30 mg Q6 hourly. Started on apixaban 5 mg twice daily for A-fib. Electromedical Equipment Technician Dr. Andreas Garg who saw the patient. 3/2: Discussed with product evangelist. Stated continue metoprolol 50 mg 4 times daily and Cardizem 30 mg Q6 hourly. Patient heart rate not controlled on long- acting therefore we will continue short acting due to patient follows in product evangelist office in 1 week. Prescriptions given for metoprolol, Cardizem, apixaban and Tapazole 2. Hyperthyroidism: Denies any exophthalmos/70/gritty sensation. No exophthalmos/proptosis. No loss of visual field. Thyroid is enlarged on exam but does not seem retrosternal extension no dyspnea or dysphagia. Hospitalist clinic discussed with veterinarian small animal Dr. Lawrence Jaime suggested Tapezol 20 mg once daily for 1 week and then decrease to 10 mg once daily. Advised follow-up with her in 2 weeks #3 essential hypertension: The blood pressure is controlled. Patient on lisinopril and HCTZ at home which was continued Discharge medication reconciliation done. Discharge follow-up instructions completed. Discharge process discussed with the patient and all questions were answered to patient's satisfaction. Follow with PCP in 1 to 2 weeks Total time spent, exact 35 minutes on discharge meds reconciliation, examination, coordination of care with nurses and ancillary staff, review of imaging and blood test and discussion with the patient on follow-up instructions. Medications at Discharge Home Medications losartan 50 mg-hydrochlorothiazide 12.5 mg tablet 1 tab PO DAILY blood pressure 05/07/24 apixaban 5 mg tablet (Eliquis) 5 mg PO BID 30 days #60 tabs 05/10/24 diltiazem HCl 30 mg tablet 30 mg PO Q6 30 days #120 tabs 05/10/24 methimazole 10 mg tablet 20 mg (2 x 10 mg) PO DAILY 30 days #60 tabs 05/10/24 metoprolol tartrate 50 mg tablet 50 mg PO Q6 30 days #120 tabs 05/10/24 Physical Exam Narrative Seen and examined. Patient has history of symptoms of hyperthyroidism but she was not aware. She stated she has constant urge to move, talkative, mild restlessness and feels a lot of energy. She sleeps well and denies insomnia or interrupted sleep. Denies constipation. Her hands are moist and sweaty. She was feeling palpitation. Denies luiz/gritty sensation in the eye. Physical exam General: Alert, Oriented x3, Cooperative HEENT: Atraumatic, PERRLA, EOMI, Normocephalic. No diplopia/loss of visual field. No lid lag sign/prominent exophthalmos Oral: No Gingival or Mucosal Lesions/ Ulcerations Neck: Bilateral thyroid lobe enlarged, no palpable nodule. Denies dysphagia. Supple, No JVD, Negative Carotid Bruits Chest wall/Lungs: Air entry diminished in bilateral lung bases. No crepitation/rhonchi Cardiovascular: Afebrile heart rate controlledNo M/G/R Abdomen: Bowel Sounds Present, Soft, Non Tender, Non-Distended : No dysuria. No renal angle tenderness. No suprapubic tenderness. Extremities: No edema, Capillary Refill Less than 3 Seconds Skin: No rashes, No breakdown Musculoskeletal: No Tenderness to Palpation of Joints or Extremities Neurological: Cranial nerves II-XII grossly intact, DTR 2+/4. No acute focal neurological deficit. Psych/Mental Status: Normal Affect, Appropriate. Weight / BMI Weight Weight: 220 lb 0.341 oz Body Mass Index (BMI) 37.8 ABG / Lab / Microbiology Data 05/07/24 13:51 05/08/24 06:36 D/C Instructions Discharge Diet: 2000 mg Sodium Diet Weight Bearing Status: Weight bearing as tolerated Call your doctor if you observe: Fever of 101 or Higher, Coldness, Increased Pain, Numbness or Tingling, Change in Color, Inability to urinate, Inability to have a bowel movement, Using more than 1 pad per hour, Shortness of breath, Dizziness, Fainting spells, Swelling in the ankles, Chest pain, Prolonged hiccupping, Increased palpitations (irregular heartbeat) and Calf discomfort DC O2, CPAP, BIPAP Needs Home O2 Discharge instructions: No When: IN 2 WEEKS Meaningful Use Info Meaningful Use Meaningful Use Diagnoses (Choose all that apply): None applicable Ischemic Stroke Statin Dosing Therapy Reference: STATIN DOSE THERAPY REFERENCE: * Patients > 75 years receive moderate or high dose statin therapy. * Patients 75 years or YOUNGER should receive HIGH intensity statin dose unless contraindicated. You will be required to document reason for non-treatment if statin daily dose does not meet guidelines. HIGH DOSE STATIN THERAPY DAILY Atorvastatin > than or = to 40 mg Rosuvastatin > than or = to 20 mg Amlodipine + Atorvastatin > than or = to 2.5/40 mg Ezetimibe + Simvastatin 10/80 mg Simvastatin 80mg Discharge Plan Admission Admit Date/Time: 05/07/24 17:24 Attending Provider: Casimiro Mireles Primary Care Provider: WES COLUNGA Consulting Providers: Andreas Garg; Juan Santiago; Navdeep Jo Instructions Additional Instructions / Restrictions: Advised methimazole 20 mg daily for 1 week and then decrease to 10 mg daily. Advised if heart rate is consistently 60-70/m for 2 to 3 days, decrease hold if heart rate less than 60/min and if persistently low between 60-70/m, can decrease metoprolol and Cardizem dose to 3 times daily. Discharge Orders/Prescriptions Prescriptions: New diltiazem HCl 30 mg Tablet 30 mg PO Q6 30 Days Qty: 120 1RF Eliquis 5 mg Tablet 5 mg PO BID 30 Days Qty: 60 3RF methimazole 10 mg tablet 20 mg PO DAILY 30 Days Qty: 60 2RF metoprolol tartrate 50 mg Tablet 50 mg PO Q6 30 Days Qty: 120 1RF No Action losartan-hydrochlorothiazide 50-12.5 mg tablet 1 tab PO DAILY Patient Comments: for blood pressure Referrals / Follow Up: WES COLUNGA DO [Primary Care Provider] - Andreas Garg MD [Med Staff - Active Staff] - Within 1 Week (Follow-up in 1 week) Lawrence Jaime MD [Med Staff - Courtesy Staff] - (Follow-up in 2 weeks) Disposition Disposition (needs filled in before D/C Order can be placed): Home, Self Care Charges/Coding Visit Charges Inpatient E&M: 52116 Disch Hosp >30min
== END 2024-05-10 13:33 | disposition home or self-care (01) | DRG 310 ==
LOC: ED 16:27 → PCU 18:03
PROVIDERS: Internal Medicine; Emergency Provider Emergency Medicine; PCP Family Medicine; Visit Provider Internal Medicine
DX: I48.0 Paroxysmal atrial fibrillation (principal); E05.90 Thyrotoxicosis, unspecified without thyrotoxic crisis or storm; I10 Essential (primary) hypertension; I49.3 Ventricular premature depolarization; Z90.49 Acquired absence of other specified parts of digestive tract
CPT/HCPCS: 36415; 71045; 80048; 83735; 83880; 84436; 84443; 84480; 84484; 85025; 93005; 93306; 99285; Q9957; A4216; C8929

== ENCOUNTER → 2024-06-22 | Outpatient (CLI) | payer OTHER, SELFPAY ==
[2024-06-22 19:29] LABS: Free T3 5.4 pg/mL (2.18-3.98); Thyroid Stim Hormone (TSH) < 0.005 uIU/mL (0.300-4.200)
== END | disposition home or self-care (01) ==
LOC: LAB 15:54
PROVIDERS: PCP Family Medicine; Referring Provider Internal Medicine Endocrinology, Diabetes & Metabolism; Visit Provider Internal Medicine Endocrinology, Diabetes & Metabolism
DX: E05.90 Thyrotoxicosis, unspecified without thyrotoxic crisis or storm (principal)
CPT/HCPCS: 36415; 84439; 84443; 84481

== ENCOUNTER → 2024-07-06 | Outpatient (CLI) | payer OTHER, SELFPAY ==
[2024-07-06 16:59] LABS: Free T3 4.5 pg/mL (2.18-3.98); Thyroid Stim Hormone (TSH) < 0.005 uIU/mL (0.300-4.200)
== END | disposition home or self-care (01) ==
LOC: LAB 15:24
PROVIDERS: PCP Family Medicine; Referring Provider Internal Medicine Endocrinology, Diabetes & Metabolism; Visit Provider Internal Medicine Endocrinology, Diabetes & Metabolism
DX: E05.90 Thyrotoxicosis, unspecified without thyrotoxic crisis or storm (principal)
CPT/HCPCS: 36415; 84439; 84443; 84481

== ENCOUNTER → 2024-07-31 | Outpatient (CLI) | payer OTHER, SELFPAY ==
[2024-07-31 15:43] LABS: Free T3 2.9 pg/mL (2.18-3.98); Thyroid Stim Hormone (TSH) < 0.005 uIU/mL (0.300-4.200)
== END | disposition home or self-care (01) ==
LOC: LAB 14:04
PROVIDERS: PCP Family Medicine; Referring Provider Internal Medicine Endocrinology, Diabetes & Metabolism; Visit Provider Internal Medicine Endocrinology, Diabetes & Metabolism
DX: E05.90 Thyrotoxicosis, unspecified without thyrotoxic crisis or storm (principal)
CPT/HCPCS: 36415; 84439; 84443; 84481

== ENCOUNTER → 2024-09-04 | Outpatient (CLI) | payer OTHER, SELFPAY ==
[2024-09-04 14:28] LABS: Free T3 2.3 pg/mL (2.18-3.98); Thyroid Stim Hormone (TSH) 0.071 uIU/mL (0.300-4.200)
== END | disposition home or self-care (01) ==
LOC: LAB 13:30
PROVIDERS: PCP Family Medicine; Referring Provider Internal Medicine Endocrinology, Diabetes & Metabolism; Visit Provider Internal Medicine Endocrinology, Diabetes & Metabolism
DX: E05.00 Thyrotoxicosis with diffuse goiter without thyrotoxic crisis or storm (principal)
CPT/HCPCS: 36415; 84439; 84443; 84481

== ENCOUNTER 2024-09-08 10:44 | Day surgery (SDC) | payer OTHER, SELFPAY ==
[2024-08-24 11:03] LABS: Anion Gap 12 (5-15); BUN 12 mg/dL (4-19); BUN/Creat Ratio 21.5 RATIO (10-20); Calcium,Total 8.7 mg/dL (7.6-11.0); Carbon Dioxide 24.2 mmol/L (21.0-32.0); Chloride 104 mmol/L (98-108); Glucose 90 mg/dL (70-99); Potassium 4.2 mmol/L (3.3-5.1)
[2024-09-07 08:35] VITALS: BMI 42.2
--- NOTE | 2024-09-08 12:27 | CARDIOVERS_ITS ---
Cardioversion Cardioversion: Patient was brought to the [facility] recovery area in the fasting state. The patient has been in atrial fibrillation since early May 2024. This was recently diagnosed when she presented with hyperthyroidism. It was not until the end of July 2024 that her thyroid was controlled. She is now brought in for elective direct-current cardioversion. The patient's heart rate has been controlled with a combination of diltiazem and metoprolol. She has been on Eliquis 5 mg twice daily uninterrupted since May 2024. After appropriate anesthesia was achieved administered by Dr. Alexandre Ken a 200 J synchronized shock was delivered via the pads in an anterior posterior position. The patient converted to normal sinus rhythm at 68 bpm. The patient awoke from the anesthesia with no neurodeficits. The patient will be continued on the metoprolol and Eliquis. The diltiazem will be discontinued. She will also be continued on her thyroid medical therapy as well as her losartan hydrochlorothiazide for her blood pressure. The patient be followed up in [facility] office in 1 week for an ECG the plan would be to continue her on combination metoprolol and Eliquis for 6 months of sinus rhythm and then we would revisit the possibility of utilizing a wearable to monitor her and discontinuing her Eliquis and metoprolol provided her thyroid remains controlled and she remains in sinus rhythm. Procedures Coronary Therapeutic CF Procedures [id number]: [id number] Cardioversion electric ext
--- NOTE | 2024-09-08 12:40 | PRO.PCM_ITS ---
Procedures Pulmonary Pulmonary Procedures /Diagnostic Testin Con Sedation Non-invasive Procedural Procedure Information Date of Procedure: 09/08/24 Description of procedure: CONSCIOUS SEDATION REPORT DATE OF SERVICE: September 08, 2024 BRIEF HISTORY OF PRESENT ILLNESS: The patient is a 58-year-old female who presented to [facility] to undergo an elective outpatient cardioversion due to atrial fibrillation. The patient has never undergone a cardioversion previously. She denied any prior anesthetic complications. The patient is a non-smoker and denied having been diagnosed with obstructive sleep apnea. Her last surface echocardiogram demonstrated an ejection fraction of 60%. She is systemically anticoagulated on Eliquis. PHYSICAL EXAMINATION: VITAL SIGNS: Reviewed and were acceptable. GENERAL: The patient is a female, in no apparent distress, speaking in full sentences. HEENT: Normocephalic, atraumatic. Mucous membranes are moist and pink. Good mouth opening noted. Trachea is midline. CHEST: S1, S2 irregularly irregular. No murmurs, rubs or gallops were noted. LUNGS: Clear to auscultation bilaterally without appreciable wheezes, rales or rhonchi. ABDOMEN: Soft, nontender, nondistended. Positive bowel sounds. EXTREMITIES: There is no clubbing, cyanosis or edema. ASA Class: II DESCRIPTION OF PROCEDURE: After confirmation of informed consent, the patient's anesthesia plan was reviewed in detail. Propofol was chosen. Risks and benefits were reviewed and the patient agreed to proceed. At 1211, the patient was given her first bolus of propofol. In total, the patient required 100 mg of propofol to achieve an appropriate level of sedation, after which time, she was given a 200 joule synchronized cardioversion by Dr. Garg at the bedside. This was successful in achieving normal sinus rhythm. The patient was monitored until 1226, at which time she reached her baseline mental status and function. The patient tolerated the procedure well. COMPLICATIONS: None ESTIMATED BLOOD LOSS: None RECOMMENDATIONS: Okay to recover in usual fashion.
== END 2024-09-08 13:15 | disposition home or self-care (01) ==
PROVIDERS: Nurse Practitioner Gerontology; PCP Family Medicine; Referring Provider Internal Medicine Cardiovascular Disease; Visit Provider Internal Medicine Cardiovascular Disease
DX: I48.0 Paroxysmal atrial fibrillation (principal); Z68.41 Body mass index [BMI] 40.0-44.9, adult; E05.00 Thyrotoxicosis with diffuse goiter without thyrotoxic crisis or storm; I10 Essential (primary) hypertension; K21.9 Gastro-esophageal reflux disease without esophagitis; E66.9 Obesity, unspecified; Z79.01 Long term (current) use of anticoagulants; Z90.49 Acquired absence of other specified parts of digestive tract; Z87.19 Personal history of other diseases of the digestive system; Z79.899 Other long term (current) drug therapy; Z79.890 Hormone replacement therapy
CPT/HCPCS: 36415; 80048; 92960; 93005

== ENCOUNTER → 2024-09-22 | Outpatient (CLI) | payer OTHER, SELFPAY ==
[2024-09-22 15:29] LABS: Free T3 2.0 pg/mL (2.18-3.98)
== END | disposition home or self-care (01) ==
LOC: LAB 13:44
PROVIDERS: PCP Family Medicine; Referring Provider Internal Medicine Endocrinology, Diabetes & Metabolism; Visit Provider Internal Medicine Endocrinology, Diabetes & Metabolism
DX: E05.00 Thyrotoxicosis with diffuse goiter without thyrotoxic crisis or storm (principal)
CPT/HCPCS: 36415; 84439; 84443; 84481

== ENCOUNTER → 2024-10-20 | Outpatient (CLI) | payer OTHER, SELFPAY ==
[2024-10-20 10:55] LABS: Free T3 2.9 pg/mL (2.18-3.98)
== END | disposition home or self-care (01) ==
LOC: LAB 09:19
PROVIDERS: PCP Family Medicine; Referring Provider Internal Medicine Endocrinology, Diabetes & Metabolism; Visit Provider Internal Medicine Endocrinology, Diabetes & Metabolism
DX: E05.00 Thyrotoxicosis with diffuse goiter without thyrotoxic crisis or storm (principal)
CPT/HCPCS: 36415; 84439; 84443; 84481

== ENCOUNTER → 2024-12-23 | Outpatient (CLI) | payer OTHER, SELFPAY ==
[2024-12-23 11:21] LABS: Free T3 3.3 pg/mL (2.18-3.98)
== END | disposition home or self-care (01) ==
LOC: LAB 10:00
PROVIDERS: PCP Family Medicine; Referring Provider Internal Medicine Endocrinology, Diabetes & Metabolism; Visit Provider Internal Medicine Endocrinology, Diabetes & Metabolism
DX: E05.00 Thyrotoxicosis with diffuse goiter without thyrotoxic crisis or storm (principal)
CPT/HCPCS: 36415; 84439; 84443; 84481